=== PATIENT | male | born 1985 | race Caucasian/White ===

== ENCOUNTER 2016-08-14 11:19 | Emergency (ER) | payer BC ==
[2016-08-14 12:09] LABS: Hematocrit 47.9 % (42.0-52.0); Hemoglobin 16.7 gm/dL (13.5-18.0); Mean Corpuscular Hgb Conc 34.9 g/dl (32-36); Mean Platelet Volume 11.4 fl (6.0-9.5); Neutrophil # 3.1 K/mm3 (1.3-6.0); Neutrophil % 56.5 % (42-75.0); Platelet Count 166 K/mm3 (150-450); Red Blood Count 5.57 M/mm3 (4.7-6.0); Red Cell Distribution Width 12.8 % (11.5-14.0); White Blood Count 5.5 K/mm3 (4.0-10.5)
--- OUTSIDE RECORDS SUMMARY | 2016-08-14 12:18 | XMS REPORT | Continuity of Care Document ---
:1985 Author Organization [facility] ([facility]) Address [place] [place] [address] Phone [phone] Care Team Providers Name Role Phone Unavailable Primary Care Provider Unavailable Source Comments This disclosure is being made pursuant to the Care Everywhere program, applicable federal and state laws, and may not contain all informaitonavailable regarding this patient.[facility] ([facility]) Active Allergies and Adverse Reactions Not on File Current Medications Not on file Active Problems Not on file Social History Tobacco Use Types Packs/Day Years Used Date Never Assessed Plan of Care Health Maintenance Due Date Last Done Comments Hepatitis B Vaccine (1 of 3 - Primary Series) 1985 Tdap Vaccine 1996 Lipid Disorder Screening 2003 MMR Vaccine 2003 Td Vaccine 2003 Varicella Vaccine (1 of 2 - Adult - No Evidence of 2003 Immunity) Influenza Vaccine: Seasonal (#1) 11/21/2015 Results from Last 3 Months Not on file
[2016-08-14 12:24] LABS: Albumin * 3.8 gm/dl (3.4-5.0); Anion Gap 12.8 mmol/L (6.8-13.8); BUN/Creatinine Ratio 9.7 (9.0-21.6); Bilirubin, Total 0.4 mg/dL (0.0-1.1); Ca. Corrected For Albumin 8.9 mg/dL (8.4-10.2); Calcium * 9.1 mg/dL (7.9-10.9); Carbon Dioxide 27.2 mmol/L (24-32.6); Total Protein 7.3 gm/dL (6.2-8.2)
[2016-08-14 12:36] LABS: Urine Bilirubin 1 mg/dl (NEGATIVE); Urine Blood Negative /ul (NEGATIVE); Urine Ketone Negative (NEGATIVE); Urine Nitrite Negative (NEGATIVE); Urine Protein Negative (NEGATIVE); Urine Specific Gravity 1.015 SP.GR. (1.005-1.030); Urine Urobilinogen Normal (NORMAL)
[2016-08-14 12:53] LABS: Urine Appearance Clear; Urine Bacteria TRACE; Urine Color Yellow; Urine Mucus Few - 1+; Urine RBC None Seen /hpf (0-5); Urine WBC TRACE /hpf (0-5)
[2016-08-14 13:17] VITALS: BP 124/76
--- NOTE | 2016-08-14 13:31 | ERNOTE ---
Back Pain ER HPI Date of Service: 08/14/16 Time Seen by Provider: 08/14/16 11:42 Source: patient Exam Limitations: no limitations Immunizations: IMMUNIZATION HX Immunizations Up to Date Yes History of Influenza Vaccine No Hx Pneumococcal Vaccination No Allergies/Adverse Reactions: Allergies No Known Allergies Allergy (Verified 08/14/16 11:33) Home Medications: HOME MEDICATIONS Dicyclomine HCl [Bentyl] 10 mg PO Q8H #10 capsule 08/14/16 [Last Taken Unknown] Ondansetron [Zofran Odt] 4 mg PO Q8H PRN #6 tab 08/14/16 [Last Taken Unknown] oxyCODONE HCL/ACETAMINOPHEN [Percocet 5-325 mg Tablet] 1 each PO PRN PRN [Last Taken Unknown] Narrative: Patient presents to the ED for diarrhea, episode of vomiting and some right back pain and left hand pain. he relates that he has been sick for approx 2 days. Started with non-bloody watery diarrhea which was significant but is now starting to improve. Had one episode of emesis. A child in the house had GI- illness. Some abdominal cramping but no localizing pain. No fever. He has had 2 days of right low back pain. He has also had 2 days of left hand pain and numbness on the back of his hand. Has not seen anyone else for this. No acute N/T/W. No CP or SOB. Timing: Reports: other - diarrea improved Quality/Severity: Reports: moderate Location of pain: Reports: other - right low back and left hand Activities at Onset: Reports: none Recent Injury?: Reports: no Possible Precipitating Factor: Reports: none Modifying Factors - (Improves): Reports: other - rest Modifying Factors - (Worsens): Reports: other - movement Associated Symptoms: Denies: fever/chills, constipation/incontinence, problems urinating, difficulty walking, numbess/weakness in legs Prior Treament: Denies: recently seen Review of Systems - Review of Systems Constitutional: Absent: fever ENT: Present: other - strep exposure at home. Absent: sore throat Respiratory: Absent: shortness of breath Cardiology: Absent: chest pain Gastrointestinal/Abdominal: Present: See HPI Genitourinary: Absent: dysuria Musculoskeletal: Present: back pain Skin: Absent: rash Neurological: Absent: headache - Patient's Past Medical History Patient History - Medical: No pertinent hx Patient History - Cardiac/Respiratory: No pertinent hx Patient History - Cancer: No Hx of Cancer Patient History - Other: None - Social History Living Situations: home Abuse History: No History of abuse Psych History: No pertinent hx Smoking Status: Current every day smoker Alcohol Use: none Drug Use: none - Immunizations Immunizations Up to Date: Yes Hx Pneumococcal Vaccination: No History of Influenza Vaccine: No Physical Exam - Physical Exam General Appearance: Present: alert, no apparent distress, other - Sitting in chair. Well hydrated, non-toxic, no distress. Eye Exam: Normal inspection: bilateral, PERRL: bilateral Ears, Nose, Throat: Present: normal ENT inspection, normal pharynx. Absent: pharyngeal erythema, pharyngeal swelling, tonsillar exudate, tonsillar swelling , dry mucous membranes Neck: Present: normal inspection, nontender, supple Respiratory: Present: no respiratory distress, normal breath sounds, lungs clear Cardiovascular/Chest: Present: regular rate, rhythm, normal peripheral pulses Peripheral Pulses: N=norm/S=strong/W=weak/B=bound/A=absent: Radial (L): Normal Gastrointestinal/Abdominal: Present: normal bowel sounds, nontender, nondistended, soft. Absent: tenderness Back Exam: Present: other - tenderness right paraspinal muscles right lumbar. No CVA tenderenss and no midline tendenress. Left hand without redness or erythema, no clear swelling noted. There is some mild diffuse posterior left hand tendenress, non-localizing. Oonce again no clear etiology of this clinically. 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 Skin Exam: Present: normal color, warm/dry, other - no erythema or warmth. Absent: skin rash ED Progress - Results and Orders Patient's Lab Results:: I have reviewed the patient's lab results. - Vital Signs Patient's Vital Signs:: I have reviewed the patient's vital signs. Vital Signs: Vital Signs 08/14/16 08/14/16 08/14/16 11:22 12:31 12:59 Temperature 36.3 C L 36.3 C L Pulse Rate 67 64 65 Respiratory 14 14 14 Rate Blood Pressure 139/78 127/74 124/76 O2 Sat by Pulse 98 98 98 Oximetry - Progress/Reassessment Chief Complaint: Back Pain Progress Note-Subjective: 08/14/16 13:24 Clinically he likely has a viral GI infection with the vomiting and diarrhea but this is improving. Normal WBC. Afebrile here. No localizing abdominal tenderness. Nothing to suggest appendicitis. No clear etiology of the musculoskeletal Sx. Nothing to suggest septic arthritis. No clear evidence of life or limb threat. I will treat with Bentyl, get PCP f/u, give work note. Conservative management for now and close clinical observation. I discussed warning signs and reasons to return as well as the need for close f/u. Departure Clinical Impression: Diarrhea, Musculoskeletal pain - Departure Disposition: Home self-care Condition: Stable Instructions: Diarrhea, Adult, [id number] Additional Instructions: Follow-up with a primary doctor for a re-check in 3 days. Rest. Fluids. Ibuprofen. Return for fever, vomiting, abdominal pain or if your condition worsens or changes in any way. Prescriptions: Dicyclomine HCl [Bentyl] 10 mg PO Q8H #10 capsule Ondansetron [Zofran Odt] 4 mg PO Q8H PRN #6 tab PRN Reason: Nausea
== END 2016-08-14 13:30 | disposition home or self-care (01) ==
LOC: ER 11:19
DX: R19.7 Diarrhea, unspecified (principal); M79.1 Myalgia; Z72.0 Tobacco use